=== PATIENT | female | born 1975 | race African-American/Black ===

== ENCOUNTER 2018-03-30 17:08 | Emergency (ER) | payer MEDICAID ==
--- NOTE | 2018-03-30 18:04 | ER Document Report ---
ED Medical Screen (RME) - General Chief Complaint: Vaginal Bleeding Stated Complaint: VAGINAL BLEEDING Time Seen by Provider: 03/30/18 17:51 TRAVEL OUTSIDE OF THE [place] IN LAST 30 DAYS: No - HPI Patient complains to provider of: vaginal bleeding Onset: Other - 42-year-old female who presents for evaluation of 23 days of persistent vaginal bleeding. Has a history of a single uterine fibroid which was previously removed approximately 3 years prior at a different hospital. She has not had any children is never been and does desire to continue to be fertile. She notes that her menses are fairly regular and generally heavy for approximately 4 days though she has been intermittently now bleeding for 23 days straight. She is not try anything to help with this, nothing is made it better or worse. - Related Data Allergies/Adverse Reactions: No Known Allergies Allergy (Unverified 03/30/18 17:10) Past Medical History - Social History Frequency of alcohol use: Rare Drug Abuse: None Pulmonary Medical History: Reports: Hx Asthma Renal/ Medical History: Denies: Hx Peritoneal Dialysis Physical Exam - Vital signs Vitals: Temp Pulse Resp BP Pulse Ox 99.7 F 88 16 140/88 H 100 03/30/18 17:14 03/30/18 17:14 03/30/18 17:14 03/30/18 17:14 03/30/18 17:14 Course - Re-evaluation Re-evalutation: 03/30/18 18:03 This 42-year-old female presents for evaluation of painless vaginal bleeding. 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 We will obtain type and screen CBC as well as a urinalysis and test. We will plan for this patient undergo pelvic ultrasound. Will defer further imaging, examination, to the next provider.I performed a rapid medical screening examination on this patient will defer further imaging, tests, disposition to next provider. - Vital Signs Vital signs: Temp Pulse Resp BP Pulse Ox 99.7 F 88 16 140/88 H 100 03/30/18 17:14 03/30/18 17:14 03/30/18 17:14 03/30/18 17:14 03/30/18 17:14
[2018-03-30 18:38] LABS: ABSOLUTE BASOPHILS # (AUTO) 0.1 10^3/uL (0.0-0.2); ABSOLUTE LYMPHOCYTES (AUTO) 2.3 10^3/uL (0.5-4.7); ABSOLUTE MONOCYTES (AUTO) 0.4 10^3/uL (0.1-1.4); BASOPHILS % (AUTO) 0.8 % (0-2); EOSINOPHILS % (AUTO) 0.3 % (0-6); HEMATOCRIT 36.8 % (36.0-47.0); HEMOGLOBIN 12.2 g/dL (12.0-15.5); LYMPHOCYTES % (AUTO) 29.8 % (13-45); MEAN CORPUSCULAR HGB CONC 33.1 g/dL (32.0-36.0); MEAN CORPUSCULAR VOLUME 94 fl (80-97); MONOCYTES % (AUTO) 4.8 % (3-13); PLATELET COUNT 291 10^3/uL (150-450); RED BLOOD COUNT 3.93 10^6/uL (3.72-5.28); RED CELL DISTRIBUTION WIDTH 13.6 % (11.5-14.0); SEGMENTED NEUTROPHILS % (AUTO) 64.3 % (42-78); TOTAL CELLS COUNTED % (AUTO) 100 %; WHITE BLOOD COUNT 7.7 10^3/uL (4.0-10.5)
[2018-03-30 20:34] LABS: APPEARANCE,URINE CLOUDY; BILIRUBIN,URINE NEGATIVE (NEGATIVE); COLOR,URINE AMBER; GLUCOSE, URINE NEGATIVE (NEGATIVE); KETONES,URINE NEGATIVE (NEGATIVE); LEUKOCYTE ESTERASE,URINE NEGATIVE (NEGATIVE); NITRITE,URINE NEGATIVE (NEGATIVE); PROTEIN,URINE 30 mg/dL (NEGATIVE); UROBILINOGEN,URINE NEGATIVE mg/dL (<2.0)
--- NOTE | 2018-03-30 20:39 | RADIOLOGY REPORT (SQ) ---
EXAM DESCRIPTION: U/S NON OB PEL TV W/DOPPLER COMPLETED DATE/TIME: 03/30/2018 7:56 pm REASON FOR STUDY: persistent vaginal bleeding, concern for fibroids LMP 10/31/2017 COMPARISON: None. TECHNIQUE: Dynamic and static grayscale images acquired of the pelvis via transvaginal approach and recorded on PACS. Additional selected color Doppler and spectral images recorded. LIMITATIONS: None. FINDINGS: UTERUS: Several fibroids are present. The largest is pedunculated and measures 5.5 cm in largest diameter. ENDOMETRIAL STRIPE: The endometrium is not significantly thickened, but has an abnormal appearance, b eing somewhat low in echogenicity. CERVIX: No nabothian cysts. RIGHT OVARY AND DOPPLER: Normal size. No worrisome masses. Normal arterial vascular flow without evid ence for torsion. LEFT OVARY AND DOPPLER: Normal size. No worrisome masses. Normal arterial vascular flow without evide nce for torsion. There is a 3.2 cm cyst. FREE FLUID: None noted. OTHER: No other significant finding. MEASUREMENTS: UTERUS: 12.3 x 7 x 6.7 cm. ENDOMETRIAL STRIPE: 10.5 mm. RIGHT OVARY: 2.6 x 2.3 x 2.3 cm. LEFT OVARY: 4.3 x 3.7 x 2.3 cm. IMPRESSION: 1. Uterine fibroids as described. 2. Slightly abnormal appearance of the endometrium. Consider endometrial biopsy. Consider follow-u p imaging in 3 months. 3. 3 cm left ovarian cyst, almost certainly benign. No additional imaging is required for this. TECHNICAL DOCUMENTATION: JOB ID: [id number] [employer]- All Rights Reserved Rev Reading location - IP/workstation name: [email or web address]
[2018-03-30 20:45] LABS: AMORPHOUS SEDIMENT,URINE TRACE /HPF; CALCIUM OXALATE CRYSTALS,URINE MANY /HPF
[2018-03-30 20:47] LABS: URINE SPECIFIC GRAVITY 1.028
--- NOTE | 2018-03-30 22:20 | ER Document Report ---
ED General - General Chief Complaint: Vaginal Bleeding Stated Complaint: VAGINAL BLEEDING Time Seen by Provider: 03/30/18 17:51 Notes: Patient is a 42-year-old female presenting to the emergency department complaining of 23 days of intermittent vaginal bleeding. Patient states 2 days out of about 23 days are very heavy with patient going through 5 tampons. States the other days she only goes through one pad per day. Patient denies dysuria, fevers, any other vaginal discharge to include malodor. Patient denies feeling lightheaded or dizzy, chest pain, shortness of breath. Patient states she has a history of fibroids and thought that was the culprit for her vaginal bleeding which is why she did not present to the emergency room sooner. Patient state and talking to family they suggested she come to the emergency room. Patient denies abdominal pain at this time. Patient is actually complaint free only wondering why she has had the vaginal bleeding for 23 days. Patient states she has a PCP at [facility] but does not have an [employer] MACHINE OPERATOR. Past medical history: Fibroids in 2016: Asthma: Fibromyalgia Medications: Cymbalta, baclofen, gabapentin, Singulair, albuterol Allergies: None Surgical history: Fibroid removal TRAVEL OUTSIDE OF THE [place] IN LAST 30 DAYS: No - Related Data Allergies/Adverse Reactions: No Known Allergies Allergy (Unverified 03/30/18 17:10) Past Medical History - General Information source: Patient - Social History Smoking Status: Current Every Day Smoker Frequency of alcohol use: Rare Drug Abuse: None Lives with: Family Family History: Reviewed & Not Pertinent Patient has suicidal ideation: No Patient has homicidal ideation: No Pulmonary Medical History: Reports: Hx Asthma Renal/ Medical History: Denies: Hx Peritoneal Dialysis Review of Systems - Review of Systems Constitutional: See HPI EENT: No symptoms reported Cardiovascular: See HPI Respiratory: No symptoms reported Gastrointestinal: See HPI Genitourinary: See HPI Female Genitourinary: See HPI Musculoskeletal: See HPI Skin: No symptoms reported Hematologic/Lymphatic: See HPI Neurological/Psychological: No symptoms reported Physical Exam - Vital signs Vitals: Temp Pulse Resp BP Pulse Ox 99.7 F 88 16 140/88 H 100 03/30/18 17:14 03/30/18 17:14 03/30/18 17:14 03/30/18 17:14 03/30/18 17:14 - Notes Notes: GENERAL: Alert, interacts well. No acute distress. HEAD: Normocephalic, atraumatic. EYES: Pupils equal, round, and reactive to light. Extraocular movements intact. ENT: Oral mucosa moist, tongue midline. NECK: Full range of motion. Supple. Trachea midline. LUNGS: Clear to auscultation bilaterally, no wheezes, rales, or rhonchi. No respiratory distress. HEART: Regular rate and rhythm. No murmur ABDOMEN: Soft, non-tender. Non-distended. Bowel sounds present in all 4 quadrants. EXTREMITIES: Moves all 4 extremities spontaneously. No edema, normal radial and dorsalis pedis pulses bilaterally. No cyanosis. BACK: no cervical, thoracic, lumbar midline tenderness. No saddle anesthesia, normal distal neurovascular exam. NEUROLOGICAL: Alert and oriented x3. Normal speech. PSYCH: Normal affect, normal mood. SKIN: Warm, dry, normal turgor. No rashes or lesions noted. Course - Re-evaluation Re-evalutation: Patient's labs show no signs of anemia, ultrasound results reviewed with patient. Patient continues to be pain-free, also denies dizziness, lightheadedness, shortness of breath, chest pain. Discussed need for follow-up with [employer] MACHINE OPERATOR, appropriate phone numbers will be given. Return precautions reviewed with patient. - Vital Signs Vital signs: Temp Pulse Resp BP Pulse Ox 97.7 F 80 18 134/92 H 100 03/30/18 22:37 03/30/18 22:37 03/30/18 22:37 03/30/18 22:37 03/30/18 22:37 - Laboratory Result Diagrams: 03/30/18 18:20 Laboratory results interpreted by me: 03/30/18 18:20 Urine Protein 30 H Urine Blood LARGE H Discharge - Discharge Clinical Impression: Vaginal bleeding Condition: Stable Disposition: HOME, SELF-CARE Additional Instructions: As we discussed you need to follow-up with [employer] MACHINE OPERATOR, phone numbers are in this packet. Also as we discussed your labs show no sign of anemia at this time. Return to the emergency room should you get lightheaded, dizzy, vaginal bleeding increased or continue, become shortness of breath, develop chest pain, or any other concerning symptoms. Referrals: LINDA FLOWERS MD [ACTIVE STAFF] - Follow up as needed
[2018-03-30 22:38] VITALS: BP 134/92
== END 2018-03-30 22:37 | disposition home or self-care (01) ==
LOC: ER 17:08
DX: N93.9 Abnormal uterine and vaginal bleeding, unspecified (principal); M79.7 Fibromyalgia; Z79.899 Other long term (current) drug therapy; F17.200 Nicotine dependence, unspecified, uncomplicated; J45.909 Unspecified asthma, uncomplicated; Z87.42 Personal history of other diseases of the female genital tract; Z98.890 Other specified postprocedural states
CPT/HCPCS: 36415; 76830; 81001; 81025; 85025; 86850; 86900; 86901; 93976; 99284

== ENCOUNTER 2018-04-28 11:06 | Day surgery (SDC) | payer MEDICAID ==
[2018-04-23 10:36] LABS: HEMATOCRIT 24.3 % (36.0-47.0); MEAN CORPUSCULAR HEMOGLOBIN 31.2 pg (27.0-33.4); MEAN CORPUSCULAR VOLUME 94 fl (80-97); PLATELET COUNT 331 10^3/uL (150-450); RED BLOOD COUNT 2.57 10^6/uL (3.72-5.28); RED CELL DISTRIBUTION WIDTH 14.4 % (11.5-14.0)
[2018-04-23 10:40] LABS: APPEARANCE,URINE SLIGHTLY-CLOUDY; BILIRUBIN,URINE NEGATIVE (NEGATIVE); COLOR,URINE YELLOW; GLUCOSE, URINE NEGATIVE (NEGATIVE); KETONES,URINE NEGATIVE (NEGATIVE); LEUKOCYTE ESTERASE,URINE NEGATIVE (NEGATIVE); NITRITE,URINE NEGATIVE (NEGATIVE); PROTEIN,URINE 30 mg/dL (NEGATIVE); URINE SPECIFIC GRAVITY 1.029; UROBILINOGEN,URINE NEGATIVE mg/dL (<2.0)
[~2018-04-28 11:06] MED LIST: LACTATED RINGERS 1000 ML IV PRN
[2018-04-28 11:59] LABS: HEMATOCRIT 24.2 % (36.0-47.0); HEMOGLOBIN 8.3 g/dL (12.0-15.5); MEAN CORPUSCULAR HEMOGLOBIN 32.3 pg (27.0-33.4); MEAN CORPUSCULAR HGB CONC 34.2 g/dL (32.0-36.0); MEAN CORPUSCULAR VOLUME 95 fl (80-97); PLATELET COUNT 366 10^3/uL (150-450); RED BLOOD COUNT 2.56 10^6/uL (3.72-5.28); RED CELL DISTRIBUTION WIDTH 15.1 % (11.5-14.0); WHITE BLOOD COUNT 9.4 10^3/uL (4.0-10.5)
[2018-04-28] MEDS ORDERED: ALBUTEROL SULFATE 0.083% NEB 2.5 MG/3 ML AMPUL NEB ONE (12:08)
[2018-04-28] MEDS ORDERED: ONDANSETRON HCL INJ/PF 4 MG/2 ML SDV ONE (12:15)
[2018-04-28] MEDS ORDERED: MIDAZOLAM 2 MG/2 ML INJ ONE (12:15)
[2018-04-28] MEDS ORDERED: FENTANYL CITRATE INJ/PF 100 MCG/2 ML AMPUL ONE (12:15)
[2018-04-28] MEDS ORDERED: DEXAMETHASONE SOD PHOSPHATE INJ 4 MG/1 ML VIAL ONE (12:15)
[2018-04-28] MEDS ORDERED: PROPOFOL INJ 200 MG/20 ML VIAL IV ONE (12:16)
[2018-04-28] MEDS ORDERED: PROMETHAZINE HCL INJ 25 MG/1 ML VIAL IV PRN ×2 (13:02)
[2018-04-28] MEDS ORDERED: MEPERIDINE HCL/PF INJ 25 MG/1 ML DISP.SYRIN IV PRN (13:02)
[2018-04-28] MEDS ORDERED: DIPHENHYDRAMINE HCL 50 MG/ML VIAL IV PRN (13:02)
[2018-04-28] MEDS ORDERED: OXYCODONE-ACETAMINOPHEN 5-325 MG TABLET PO PRN ×4 (13:02→13:30)
[2018-04-28] MEDS ORDERED: MORPHINE SULFATE 10 MG/ML INJ IV PRN (13:02)
[2018-04-28] MEDS ORDERED: FENTANYL CITRATE INJ/PF 100 MCG/2 ML AMPUL IV PRN ×3 (13:02)
[2018-04-28] MEDS ORDERED: ACETAMINOPHEN 1,000 MG/100 ML RTUPB IV ONE (13:23)
--- NOTE | 2018-04-28 13:29 | Operative Report ---
Operative Report DATE OF SURGERY: 04/28/18 PREOPERATIVE DIAGNOSIS: Uterine fibroids, heavy vaginal bleeding, anemia POSTOPERATIVE DIAGNOSIS: Same OPERATION: D&C hysteroscopy SURGEON: TYSHAWN GUZMAN ANESTHESIA: GA TISSUE REMOVED OR ALTERED: Uterine contents COMPLICATIONS: None ESTIMATED BLOOD LOSS: 50 cc INTRAOPERATIVE FINDINGS: The uterine cavity showed a large amount of debris but no uterine fibroids in the endometrial cavity PROCEDURE: Patient was taken the OR and placed in supine position. General anesthesia was induced. She was placed in the dorsolithotomy position using Sunny stirrups. Perineum and vagina were prepared and draped in sterile fashion. Her bladder was drained with a red rubber catheter. A weighted speculum was placed in the vagina and the anterior lip cervix grasped with a tenaculum. The uterus sounded to 10 cm before and after the case. Hysteroscopy was performed which showed a large amount of debris in the uterus. A sharp curettage was carried out noting a good cry on all 4 uterine mar. Large amount of tissue was sent for pathology. Repeat hysteroscopy showed a empty uterine cavity. There were no fibroids in the cavity. Bleeding was markedly improved. All instruments were removed. She is placed back in supine position and brought out of anesthesia.
[2018-04-28] MEDS ORDERED: RINGERS SOLUTION,LACTATED 1,000 ML IV PRN (13:30)
[2018-04-28] MEDS: FENTANYL CITRATE INJ/PF 100 MCG/2 ML AMPUL ONE ×2 (13:30→13:35)
[2018-04-28] MEDS ORDERED: OXYCODONE-ACETAMINOPHEN 5-325 MG TABLET ONE (14:34)
[2018-04-28 16:49] VITALS: BP 142/86
--- NOTE | 2018-05-03 20:14 | Discharge Summary ---
Discharge Summary (SDC) - Discharge Final Diagnosis: Menorrhagia Date of Surgery: 04/28/18 Discharge Date: 04/28/18 Condition: Good Forms: ASU Anesthesia D/C Instruction, Discharge POC-Surgical Service Prescriptions: Oxycodone HCl/Acetaminophen [Percocet 5-325 mg Tablet] 1 tab PO Q4HP PRN #20 tablet PRN Reason: Referrals: TYSHAWN GUZMAN MD [ACTIVE STAFF] - Respiratory Treatments at Home: Deep Breathing/Coughing Discharge Activity: Activity As Tolerated, Balance Activity w/Rest, No Driving, Pelvic Rest, No tub bath Home Care Assistance: None Needed Report the Following to Your Physician Immediately: Shortness of Breath, Nausea , Vomiting, Increase in Pain, Fever over 101 Degrees, Unusual Bleeding, Increased Soreness, Increased Vaginal Bleed, Large Clots, IV Site Infection Signs, Urinary Infection Signs
== END 2018-04-28 15:35 | disposition home or self-care (01) ==
LOC: OROUT 11:06
PROVIDERS: ATTEND Obstetrics & Gynecology
DX: N92.0 Excessive and frequent menstruation with regular cycle (principal); N84.0 Polyp of corpus uteri; N87.0 Mild cervical dysplasia; D64.9 Anemia, unspecified; F17.210 Nicotine dependence, cigarettes, uncomplicated; J45.909 Unspecified asthma, uncomplicated; F32.9 Major depressive disorder, single episode, unspecified; M79.7 Fibromyalgia; Z79.899 Other long term (current) drug therapy; Z79.51 Long term (current) use of inhaled steroids
CPT/HCPCS: 36415 ×2; 85027 ×2; 81005; 81025; 88305 ×2; 94640; 58558; J2250; J1100; J3010; J2405; J2704; J0131; 952

== ENCOUNTER → 2018-05-20 | Outpatient (CLI) | payer MEDICAID ==
[2018-05-20 17:39] LABS: ABSOLUTE LYMPHOCYTES (AUTO) 1.7 10^3/uL (0.5-4.7); ABSOLUTE MONOCYTES (AUTO) 0.3 10^3/uL (0.1-1.4); BASOPHILS % (AUTO) 0.7 % (0-2); EOSINOPHILS % (AUTO) 0.4 % (0-6); HEMATOCRIT 33.8 % (36.0-47.0); HEMOGLOBIN 11.3 g/dL (12.0-15.5); LYMPHOCYTES % (AUTO) 24.4 % (13-45); MEAN CORPUSCULAR HEMOGLOBIN 31.4 pg (27.0-33.4); MEAN CORPUSCULAR HGB CONC 33.3 g/dL (32.0-36.0); MEAN CORPUSCULAR VOLUME 94 fl (80-97); MONOCYTES % (AUTO) 4.2 % (3-13); PLATELET COUNT 322 10^3/uL (150-450); RED BLOOD COUNT 3.58 10^6/uL (3.72-5.28); RED CELL DISTRIBUTION WIDTH 14.3 % (11.5-14.0); SEGMENTED NEUTROPHILS % (AUTO) 70.3 % (42-78); TOTAL CELLS COUNTED % (AUTO) 100 %; WHITE BLOOD COUNT 7.1 10^3/uL (4.0-10.5)
[2018-05-20 17:56] LABS: ALANINE AMINOTRANSFERASE 17 U/L (9-52); ALBUMIN 4.7 g/dL (3.5-5.0); ALKALINE PHOSPHATASE 42 U/L (38-126); ANION GAP 15 (5-19); ASPARTATE AMINO TRANSFERASE 18 U/L (14-36); BILIRUBIN,DIRECT 0.1 mg/dL (0.0-0.4); BILIRUBIN,TOTAL 0.3 mg/dL (0.2-1.3); BLOOD UREA NITROGEN 11 mg/dL (7-20); CARBON DIOXIDE 27 mmol/L (22-30); CHLORIDE 102 mmol/L (98-107); GLUCOSE 99 mg/dL (75-110); IRON(TIBC) 33.5 ug/dL (37-170); POTASSIUM 4.4 mmol/L (3.6-5.0); SODIUM 143.5 mmol/L (137-145)
== END ==
LOC: OD 17:07
PROVIDERS: ATTEND Family Medicine
DX: D50.0 Iron deficiency anemia secondary to blood loss (chronic) (principal); Z87.898 Personal history of other specified conditions; N92.6 Irregular menstruation, unspecified; E55.9 Vitamin D deficiency, unspecified
CPT/HCPCS: 36415; 80053; 82306; 82728; 83540; 83550; 84443; 85025

== ENCOUNTER → 2018-12-17 | Outpatient (CLI) | payer MEDICAID ==
--- NOTE | 2018-12-17 15:59 | WOMENS IMAGING REPORT ---
EXAM DESCRIPTION: 3D SCREENING MAMMO BILAT COMPLETED DATE/TIME: 12/17/2018 3:30 pm REASON FOR STUDY: Z12.31 ENCOUNTER FOR SCREENING MAMMOGRAM FOR MALIGNANT NEOPLASM OF BREAST Z12.31 ENCNTR SCREEN MAMMOGRAM FOR MALIGNANT NEOPLASM OF MANNY COMPARISON: None. EXAM PARAMETERS: Views: Standard craniocaudal and mediolateral oblique views of each breast recorded using digital acquisition and breast tomosynthesis. Read with the assistance of CAD. .[facility] - [employer] Version 9.2 LIMITATIONS: None. FINDINGS: No suspicious masses, suspicious calcifications or architectural distortion. No areas of c oncern. IMPRESSION: NEGATIVE MAMMOGRAM. BIRADS 1. BREAST DENSITY: c. The breasts are heterogeneously dense, which may obscure small masses. BIRAD: ASSESSMENT: 1 NEGATIVE RECOMMENDATION: ROUTINE SCREENING COMMENT: The patient has been notified of the results by letter per MQSA requirements. Additional no tification policies are in place for contacting patient with suspicious or incomplete findings. Quality ID #[id number]: The [employer] recommends an annual screening mammogram for women aged 40 years or over. This facility utilizes a reminder system to ensure that all patients receive reminder letters, and/or direct phone calls for appointments. This includes reminders for routine scr eening mammograms, diagnostic mammograms, or other Breast Imaging Interventions when appropriate. Th is patient will be placed in the appropriate reminder system. TECHNICAL DOCUMENTATION: FINDING NUMBER: (1) ASSESSMENT: (1) JOB ID: [id number] [employer]- All Rights Reserved Reading location - IP/workstation name: [email or web address]
== END ==
LOC: WI 14:54
PROVIDERS: ATTEND Family Medicine
DX: Z12.31 Encounter for screening mammogram for malignant neoplasm of breast (principal)
CPT/HCPCS: 77063; 77067

== ENCOUNTER → 2019-05-10 | Outpatient (CLI) | payer MEDICAID ==
[2019-05-10 16:09] LABS: ABSOLUTE BASOPHILS # (AUTO) 0.1 10^3/uL (0.0-0.2); ABSOLUTE LYMPHOCYTES (AUTO) 1.8 10^3/uL (0.5-4.7); ABSOLUTE MONOCYTES (AUTO) 0.3 10^3/uL (0.1-1.4); ABSOLUTE NEUT (AUTO) 5.3 10^3/uL (1.7-8.2); BASOPHILS % (AUTO) 0.8 % (0-2); EOSINOPHILS % (AUTO) 0.5 % (0-6); HEMATOCRIT 39.6 % (36.0-47.0); HEMOGLOBIN 13.4 g/dL (12.0-15.5); LYMPHOCYTES % (AUTO) 24.7 % (13-45); MEAN CORPUSCULAR HEMOGLOBIN 31.3 pg (27.0-33.4); MEAN CORPUSCULAR HGB CONC 33.8 g/dL (32.0-36.0); MEAN CORPUSCULAR VOLUME 92 fl (80-97); MONOCYTES % (AUTO) 3.4 % (3-13); PLATELET COUNT 279 10^3/uL (150-450); RED BLOOD COUNT 4.28 10^6/uL (3.72-5.28); RED CELL DISTRIBUTION WIDTH 13.9 % (11.5-14.0); SEGMENTED NEUTROPHILS % (AUTO) 70.6 % (42-78); TOTAL CELLS COUNTED % (AUTO) 100 %; WHITE BLOOD COUNT 7.5 10^3/uL (4.0-10.5)
[2019-05-10 16:34] LABS: ALBUMIN 4.6 g/dL (3.5-5.0); ALKALINE PHOSPHATASE 48 U/L (38-126); ANION GAP 12 (5-19); ASPARTATE AMINO TRANSFERASE 22 U/L (14-36); BILIRUBIN,DIRECT 0.1 mg/dL (0.0-0.4); BILIRUBIN,TOTAL 0.4 mg/dL (0.2-1.3); BLOOD UREA NITROGEN 14 mg/dL (7-20); C-REACTIVE PROTEIN 7.2 mg/L (<10.0); CALCIUM 9.9 mg/dL (8.4-10.2); CARBON DIOXIDE 27 mmol/L (22-30); CHLORIDE 105 mmol/L (98-107); GLUCOSE 91 mg/dL (75-110); POTASSIUM 4.4 mmol/L (3.6-5.0); TOTAL PROTEIN 8.6 g/dL (6.3-8.2)
[2019-05-10 16:44] LABS: ERYTHROCYTE SEDIMENTATION RATE 57 mm/hr (0-20)
[2019-05-10 16:50] LABS: FREE T4 (FREE THYROXINE) 0.81 ng/dL (0.78-2.19)
[2019-05-10 17:04] LABS: THYROID STIMULATING HORMONE 1.54 uIU/mL (0.47-4.68)
[2019-05-12 07:06] LABS: T3 UPTAKE (RESIN) 31 % (24-39)
[2019-05-12 12:59] LABS: VITAMIN D 1,25 DIHYDROXY 54.1 pg/mL (19.9-79.3)
[2019-05-12 14:20] LABS: ANTINUCLEAR ANTIBODIES Negative (Negative)
== END ==
LOC: OD 15:15
PROVIDERS: ATTEND Physician Assistant Medical
DX: G89.4 Chronic pain syndrome (principal)
CPT/HCPCS: 36415; 80053; 82607; 82652; 83516; 84436; 84439; 84443; 84479; 85025; 85652; 86038; 86140; 86256; 86430; 86812

== ENCOUNTER → 2020-04-23 | Outpatient (CLI) | payer MEDICAID ==
[2020-04-23 17:22] LABS: ANION GAP 12 (5-19); BLOOD UREA NITROGEN 10 mg/dL (7-20); CALCIUM 9.7 mg/dL (8.4-10.2); CARBON DIOXIDE 26 mmol/L (22-30); CHLORIDE 100 mmol/L (98-107); GLUCOSE 88 mg/dL (75-110); POTASSIUM 4.3 mmol/L (3.6-5.0)
== END ==
LOC: OD 16:11
PROVIDERS: ATTEND Family Medicine
DX: M35.9 Systemic involvement of connective tissue, unspecified (principal)
CPT/HCPCS: 36415; 80048